=== PATIENT | male | born 1980 | race Caucasian/White ===

== ENCOUNTER 2021-02-06 02:32 | Emergency (ER) | payer BC ==
[~2021-02-06] VITALS: Ht 182.9 cm; Wt 96.0 kg
[2021-02-06 03:15] VITALS: BP 125/76
--- NOTE | 2021-02-06 03:18 | NUR ---
PT HERE FOR LEFT INGUINAL PAIN. VSS. PT UP TO BATHROOM FOR UA.
--- NOTE | 2021-02-06 03:32 | NUR ---
UA SENT TO LAB. BLOOD SRAWN. VSS. CALL LIGHT IN REACH
[2021-02-06 03:34] LABS: BASOPHILS % (AUTO) 1 % (0-1); EOSINOPHILS % (AUTO) 4 % (1-7); LYMPHOCYTES % (AUTO) 41 % (22-44); MEAN CORPUSCULAR HEMOGLOBIN 32.2 pg (27.5-34.5); MEAN CORPUSCULAR HGB CONC 33.8 g/dL (33.2-36.2); MEAN PLATELET VOLUME 8.4 fL (7.4-10.4); MONOCYTES % (AUTO) 10 % (2-9); NEUTROPHILS % (AUTO) 45 % (42-75); PLATELET COUNT 231 x10^3/uL (130-400); RED BLOOD COUNT 4.42 x10^6/uL (4.38-5.82); RED CELL DISTRIBUTION WIDTH 13.7 % (9.4-14.8)
[2021-02-06 03:36] LABS: MD NO
[2021-02-06 03:36] LABS: MICROSCOPIC NOT IND
[2021-02-06 03:38] LABS: ALBUMIN 3.5 g/dL (3.4-5.0); ANION GAP 5 mmol/L (5-15); CALCIUM 8.9 mg/dL (8.5-10.1); CHLORIDE 109 mmol/L (98-107)
[2021-02-06 03:42] LABS: ALANINE AMINOTRANSFERASE 36 U/L (12-78); ALKALINE PHOSPHATASE 52 U/L (45-117); BILIRUBIN,TOTAL 0.2 mg/dL (0.2-1.0); CREATININE 0.92 mg/dL (0.7-1.3); TOTAL PROTEIN 7.2 g/dL (6.4-8.2)
--- NOTE | 2021-02-06 03:45 | NUR ---
PT ANXIOUS TO LEAVE. RN ADVISED PT THAT RESULTS WILL BE POSTED SOON. PT SAYS HE WILL WAIT.
--- NOTE | 2021-02-06 04:21 | NUR ---
PT NOT IN ROOM. PT ELOPED PRIOR TO RECIEVING DISCHARGE INSTRUCTIONS
== END 2021-02-06 04:23 | disposition left against medical advice (07) ==
LOC: ED 04:17
DX: K40.91 Unilateral inguinal hernia, without obstruction or gangrene, recurrent (principal); R10.32 Left lower quadrant pain
CPT/HCPCS: 36415; 80053; 81003; 83690; 85025; 99283